=== PATIENT | male | born 1965 | race Caucasian/White ===

== ENCOUNTER 2017-09-30 17:32 | Inpatient (IN) | payer OTHER ==
[2017-09-30 19:33] VITALS: BMI 24.8
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
[2017-09-30] MEDS ORDERED: LOPERAMIDE HCL 2 MG CAPSULE PO PRN (21:57)
[2017-09-30] MEDS ORDERED: MAGNESIUM CITRATE 300 ML BOTTLE PO PRN (21:57)
[2017-09-30] MEDS ORDERED: ACETAMINOPHEN 325 MG TABLET (FP) PO PRN (21:57)
[2017-09-30] MEDS ORDERED: MAG HYDROX/AL HYDROX/SIMETH 30 ML UNIT-DOSE CUP PO PRN (21:57)
[2017-09-30] MEDS ORDERED: NICOTINE POLACRILEX 2 MG GUM BUC PRN (21:57)
[2017-09-30] MEDS ORDERED: MAGNESIUM HYDROX 2400MG/30ML ORAL SUSPENSION 30 ML CUP PO PRN (21:57)
[2017-09-30] MEDS ORDERED: MENTHOL/PHENOL 1 EACH UD MM PRN (21:57)
[2017-09-30] MEDS ORDERED: guaiFENesin/D-METHORPHAN HB 10 ML UNIT-DOSE CUPS PO PRN (21:57)
[2017-09-30] MEDS ORDERED: METHADONE HCL 10 MG TABLET (FOR DETOX USE ONLY) PO ONE ×2 (21:57→23:00)
[2017-09-30] MEDS ORDERED: P-EPHED 60MG/TRIPROLIDI 2.5MG TABLET PO PRN (21:57)
[2017-09-30] MEDS ORDERED: diazePAM 5 MG TABLET PO PRN (21:57)
[2017-09-30] MEDS ORDERED: IBUPROFEN 400 MG TABLET (FP) PO PRN (21:57)
[2017-10-01] MEDS ORDERED: METHADONE HCL 10 MG TABLET (FOR DETOX USE ONLY) PO ONE ×4 (00:34→23:00)
[2017-10-01] MEDS: THIAMINE HCL 100 MG TABLET (FP) PO SCH ×2 (00:38→22:28)
[2017-10-01] MEDS: PRENATAL VITAMINS W/ FOLIC ACID TABLET (FP) PO SCH (10:06)
[2017-10-01] MEDS: NICOTINE 14 MG/24 HOURS TOPICAL PATCH TD SCH (10:06)
[2017-10-01 10:08] LABS: HEMATOCRIT 40.2 % (35.4-49); MCH 27.9 pg (25.7-33.7); MCHC 32.3 g/dl (32.0-35.9); MEAN CELL VOLUME 86.5 fl (80-96); MEAN PLT VOLUME 8.3 fl (7.5-11.1); PLATELET COUNT 183 K/MM3 (134-434); RBC 4.65 M/mm3 (4.00-5.60); RDW 15.3 % (11.9-15.9); WHITE BLOOD COUNT 5.7 K/mm3 (4.0-10.0)
[2017-10-01 10:12] LABS: CHLORIDE 112 mmol/L (98-107); POTASSIUM 4.3 mmol/L (3.5-5.1); SODIUM 144 mmol/L (136-145)
--- NOTE | 2017-10-01 10:14 | EKG ---
Test Reason : Blood Pressure : / mmHG Vent. Rate : 068 BPM Atrial Rate : 068 BPM P-R Int : 126 ms QRS Dur : 084 ms QT Int : 410 ms P-R-T Axes : 074 026 039 degrees QTc Int : 435 ms NORMAL SINUS RHYTHM NORMAL ECG NO PREVIOUS ECGS AVAILABLE Confirmed by Bartolome Modi MD ([id number]) on 10/01/2017 10:14:05 AM Referred By: Confirmed By:Bartolome Modi MD
[2017-10-01 10:20] LABS: ALBUMIN 2.7 g/dl (3.4-5.0); ALK PHOS 84 U/L (45-117); ANION GAP 4 (8-16); BILIRUBIN,TOTAL 0.1 mg/dL (0.2-1.0); BLOOD UREA NITROGEN 24 mg/dL (7-18); CALCIUM 8.3 mg/dL (8.5-10.1); CO2 28 mmol/L (21-32); CREATININE 1.1 mg/dL (0.7-1.3); GLUCOSE,RANDOM 93 mg/dL (74-106); SGOT/AST 19 U/L (15-37); SGPT/ALT 24 U/L (12-78); TOT PROT 5.4 g/dl (6.4-8.2)
--- NOTE | 2017-10-01 12:11 | PN ---
BHS COWS - Scale Resting Pulse: 0= [place] 80 or Below Sweatin= Chills/Flushing Restless Observation: 0= Sits Still Pupil Size: 2= Moderately Dilated Bone or Joint Aches: 4=Acute Joint/Muscle Pain Runny Nose/ Eye Tearin= Nasal Congestion GI Upset > 30mins: 0= None Tremor Observation of Outstretched Hands: 2= Slight Tremor Visible Yawning Observation: 2= >3x During Session Anxiety or Irritability: 2=Irritable/Anxious Goose Flesh Skin: 0=Smooth Skin COWS Score: 14 BHS Progress Note (SOAP) Subjective: ANXIETY,YAWNING,FATIGUE,TEARY EYES. Objective: 10/01/17 12:09 Vital Signs Temperature 97.9 F 10/01/17 09:08 Pulse Rate 58 L 10/01/17 09:08 Respiratory Rate 18 10/01/17 09:08 Blood Pressure 129/80 10/01/17 09:08 O2 Sat by Pulse Oximetry (%) Laboratory Last Values WBC 5.7 K/mm3 (4.0-10.0) 10/01/17 08:00 RBC 4.65 M/mm3 (4.00-5.60) 10/01/17 08:00 Hgb 13.0 GM/dL (11.7-16.9) 10/01/17 08:00 Hct 40.2 % (35.4-49) 10/01/17 08:00 MCV 86.5 fl (80-96) 10/01/17 08:00 MCH 27.9 pg (25.7-33.7) 10/01/17 08:00 MCHC 32.3 g/dl (32.0-35.9) 10/01/17 08:00 RDW 15.3 % (11.9-15.9) 10/01/17 08:00 Plt Count 183 K/MM3 (134-434) 10/01/17 08:00 MPV 8.3 fl (7.5-11.1) 10/01/17 08:00 Sodium 144 mmol/L (136-145) 10/01/17 08:00 Potassium 4.3 mmol/L (3.5-5.1) 10/01/17 08:00 Chloride 112 mmol/L (98-107) H 10/01/17 08:00 Carbon Dioxide 28 mmol/L (21-32) 10/01/17 08:00 Anion Gap 4 (8-16) L 10/01/17 08:00 BUN 24 mg/dL (7-18) H 10/01/17 08:00 Creatinine 1.1 mg/dL (0.7-1.3) 10/01/17 08:00 Creat Clearance w eGFR > 60 (>60) 10/01/17 08:00 Random Glucose 93 mg/dL (74-106) 10/01/17 08:00 Calcium 8.3 mg/dL (8.5-10.1) L 10/01/17 08:00 Total Bilirubin 0.1 mg/dL (0.2-1.0) L 10/01/17 08:00 AST 19 U/L (15-37) 10/01/17 08:00 ALT 24 U/L (12-78) 10/01/17 08:00 Alkaline Phosphatase 84 U/L (45-117) 10/01/17 08:00 Total Protein 5.4 g/dl (6.4-8.2) L 10/01/17 08:00 Albumin 2.7 g/dl (3.4-5.0) L 10/01/17 08:00 UA PENDING BUN NOTED Assessment: 10/01/17 12:09 WITHDRAWAL SX Plan: CONTINUE DETOX REPEAT CMP
--- NOTE | 2017-10-01 13:19 | CONSULT ---
[facility] Psychiatric Consult - Data Date of interview: 10/01/17 Admission source: [facility] Identifying data: THREE visits at bedside.Patient remains uncooperative.Examination deferred.
[2017-10-01 18:06] LABS: URINE APPEARANCE TURBID; URINE BLOOD NEGATIVE (NEGATIVE); URINE COLOR AMBER; URINE GLUCOSE (UA) NEGATIVE (NEGATIVE); URINE KETONE NEGATIVE (NEGATIVE); URINE LEUK ESTERASE NEGATIVE (NEGATIVE); URINE NITRITE NEGATIVE (NEGATIVE)
[2017-10-01 18:18] LABS: URINE PROTEIN 1+ (NEGATIVE)
[2017-10-01 19:10] LABS: CALCIUM OXALATE CRYSTALS MODERATE /hpf (NONE SEEN); URINE BACTERIA RARE /hpf (NONE SEEN); URINE MUCUS MANY
[2017-10-01] MEDS: diazePAM 5 MG TABLET PO PRN (22:27)
[2017-10-02] MEDS ORDERED: METHADONE HCL 10 MG TABLET (FOR DETOX USE ONLY) PO ONE (10:00)
[2017-10-02] MEDS ORDERED: METHADONE HCL 5 MG TABLET (FOR DETOX USE ONLY) PO ONE (10:00)
[2017-10-02] MEDS: PRENATAL VITAMINS W/ FOLIC ACID TABLET (FP) PO SCH (10:19)
[2017-10-02] MEDS: NICOTINE 14 MG/24 HOURS TOPICAL PATCH TD SCH (10:21)
[2017-10-02 10:44] LABS: CHLORIDE 113 mmol/L (98-107); POTASSIUM 3.9 mmol/L (3.5-5.1); SODIUM 139 mmol/L (136-145)
[2017-10-02 10:56] LABS: ALBUMIN 2.9 g/dl (3.4-5.0); ALK PHOS 80 U/L (45-117); ANION GAP -4 (8-16); BILIRUBIN,TOTAL 0.2 mg/dL (0.2-1.0); BLOOD UREA NITROGEN 15 mg/dL (7-18); CALCIUM 8.7 mg/dL (8.5-10.1); CO2 30 mmol/L (21-32); GLUCOSE,RANDOM 78 mg/dL (74-106); SGOT/AST 16 U/L (15-37); SGPT/ALT 26 U/L (12-78); TOT PROT 5.9 g/dl (6.4-8.2)
--- NOTE | 2017-10-02 12:10 | PN ---
BHS COWS - Scale Resting Pulse: 0= [place] 80 or Below Sweatin= Chills/Flushing Restless Observation: 3= Extraneous Movement Pupil Size: 0= Normal to Room Light Bone or Joint Aches: 4=Acute Joint/Muscle Pain Runny Nose/ Eye Tearin= Runny Nose/Eyes GI Upset > 30mins: 0= None Tremor Observation of Outstretched Hands: 2= Slight Tremor Visible Yawning Observation: 1= 1-2x During Session Anxiety or Irritability: 2=Irritable/Anxious Goose Flesh Skin: 0=Smooth Skin COWS Score: 15 BHS Progress Note (SOAP) Subjective: ANXIETY,SWEATS,CHILLS,RUNNY NOSE. Objective: 10/02/17 12:09 Vital Signs Temperature 96.7 F L 10/02/17 09:15 Pulse Rate 62 10/02/17 09:15 Respiratory Rate 18 10/02/17 09:15 Blood Pressure 126/70 10/02/17 09:15 O2 Sat by Pulse Oximetry (%) Laboratory Last Values WBC 5.7 K/mm3 (4.0-10.0) 10/01/17 08:00 RBC 4.65 M/mm3 (4.00-5.60) 10/01/17 08:00 Hgb 13.0 GM/dL (11.7-16.9) 10/01/17 08:00 Hct 40.2 % (35.4-49) 10/01/17 08:00 MCV 86.5 fl (80-96) 10/01/17 08:00 MCH 27.9 pg (25.7-33.7) 10/01/17 08:00 MCHC 32.3 g/dl (32.0-35.9) 10/01/17 08:00 RDW 15.3 % (11.9-15.9) 10/01/17 08:00 Plt Count 183 K/MM3 (134-434) 10/01/17 08:00 MPV 8.3 fl (7.5-11.1) 10/01/17 08:00 Sodium 139 mmol/L (136-145) 10/02/17 07:00 Potassium 3.9 mmol/L (3.5-5.1) 10/02/17 07:00 Chloride 113 mmol/L (98-107) H 10/02/17 07:00 Carbon Dioxide 30 mmol/L (21-32) 10/02/17 07:00 Anion Gap -4 (8-16) L 10/02/17 07:00 BUN 15 mg/dL (7-18) D 10/02/17 07:00 Creatinine 1.0 mg/dL (0.7-1.3) 10/02/17 07:00 Creat Clearance w eGFR > 60 (>60) 10/02/17 07:00 Random Glucose 78 mg/dL (74-106) 10/02/17 07:00 Calcium 8.7 mg/dL (8.5-10.1) 10/02/17 07:00 Total Bilirubin 0.2 mg/dL (0.2-1.0) D 10/02/17 07:00 AST 16 U/L (15-37) 10/02/17 07:00 ALT 26 U/L (12-78) 10/02/17 07:00 Alkaline Phosphatase 80 U/L (45-117) 10/02/17 07:00 Total Protein 5.9 g/dl (6.4-8.2) L 10/02/17 07:00 Albumin 2.9 g/dl (3.4-5.0) L 10/02/17 07:00 Urine Color [place] 09/30/17 17:00 Urine Appearance Turbid 09/30/17 17:00 Urine pH 5.0 (5.0-8.0) 09/30/17 17:00 Ur Specific [place] 1.032 (1.001-1.035) 09/30/17 17:00 Urine Protein 1+ (NEGATIVE) H 09/30/17 17:00 Urine Glucose (UA) Negative (NEGATIVE) 09/30/17 17:00 Urine Ketones Negative (NEGATIVE) 09/30/17 17:00 Urine Blood Negative (NEGATIVE) 09/30/17 17:00 Urine Nitrite Negative (NEGATIVE) 09/30/17 17:00 Urine Bilirubin 2.0 (<2.0 mg/dL) 09/30/17 17:00 Urine Urobilinogen 2.0 mg/dL (0.2-1.0) 09/30/17 17:00 Ur Leukocyte Esterase Negative (NEGATIVE) 09/30/17 17:00 Urine WBC (Auto) 2 /hpf (3-5) 09/30/17 17:00 Urine RBC (Auto) 1 /hpf (0-3) 09/30/17 17:00 Calcium Oxalate Crystal Moderate /hpf (NONE SEEN) 09/30/17 17:00 Urine Bacteria Rare /hpf (NONE SEEN) 09/30/17 17:00 Urine Mucus Many 09/30/17 17:00 Assessment: 10/02/17 12:09 WITHDRAWAL SX Plan: CONTINUE DETOX
[2017-10-02] MEDS: diazePAM 5 MG TABLET PO PRN (22:09)
[2017-10-02] MEDS: MELATONIN 5 MG TABLETS PO PRN (22:09)
[2017-10-02] MEDS: THIAMINE HCL 100 MG TABLET (FP) PO SCH (22:09)
[2017-10-03] MEDS ORDERED: METHADONE HCL 5 MG TABLET (FOR DETOX USE ONLY) PO ONE ×2 (10:00)
[2017-10-03] MEDS: PRENATAL VITAMINS W/ FOLIC ACID TABLET (FP) PO SCH (10:23)
[2017-10-03] MEDS: diazePAM 5 MG TABLET PO PRN (10:23)
[2017-10-03] MEDS: NICOTINE 14 MG/24 HOURS TOPICAL PATCH TD SCH (10:24)
--- NOTE | 2017-10-03 17:43 | PN ---
BHS Progress Note (SOAP) Subjective: Tremors,Sweating, Chills, Hot / Cold Sensations. Objective: PATIENT A & O X 2 (UNCERTAIN ABOUT CURRENT DAY/ DATE). PATIENT OBSERVED AMBULATING ON UNIT. NO ACUTE DISTRESS. 10/03/17 17:42 Vital Signs Temperature 97.0 F L 10/03/17 14:54 Pulse Rate 72 10/03/17 14:54 Respiratory Rate 18 10/03/17 14:54 Blood Pressure 139/68 10/03/17 14:54 O2 Sat by Pulse Oximetry (%) Laboratory Tests 09/30/17 10/01/17 10/01/17 17:00 08:00 08:00 WBC 5.7 RBC 4.65 Hgb 13.0 Hct 40.2 MCV 86.5 MCH 27.9 MCHC 32.3 RDW 15.3 Plt Count 183 MPV 8.3 Sodium 144 Potassium 4.3 Chloride 112 H Carbon Dioxide 28 Anion Gap 4 L BUN 24 H Creatinine 1.1 Creat Clearance w eGFR > 60 Random Glucose 93 Calcium 8.3 L Total Bilirubin 0.1 L AST 19 ALT 24 Alkaline Phosphatase 84 Total Protein 5.4 L Albumin 2.7 L Urine Color [place] Urine Appearance Turbid Urine pH 5.0 Ur Specific [place] 1.032 Urine Protein 1+ H Urine Glucose (UA) Negative Urine Ketones Negative Urine Blood Negative Urine Nitrite Negative Urine Bilirubin 2.0 Urine Urobilinogen 2.0 Ur Leukocyte Esterase Negative Urine WBC (Auto) 2 Urine RBC (Auto) 1 Calcium Oxalate Crystal Moderate Urine Bacteria Rare Urine Mucus Many RPR Titer 10/01/17 10/02/17 08:00 07:00 WBC RBC Hgb Hct MCV MCH MCHC RDW Plt Count MPV Sodium 139 Potassium 3.9 Chloride 113 H Carbon Dioxide 30 Anion Gap -4 L BUN 15 D Creatinine 1.0 Creat Clearance w eGFR > 60 Random Glucose 78 Calcium 8.7 Total Bilirubin 0.2 D AST 16 ALT 26 Alkaline Phosphatase 80 Total Protein 5.9 L Albumin 2.9 L Urine Color Urine Appearance Urine pH Ur Specific [place] Urine Protein Urine Glucose (UA) Urine Ketones Urine Blood Urine Nitrite Urine Bilirubin Urine Urobilinogen Ur Leukocyte Esterase Urine WBC (Auto) Urine RBC (Auto) Calcium Oxalate Crystal Urine Bacteria Urine Mucus RPR Titer Nonreactive LABS NOTED. Assessment: 10/03/17 17:42 WITHDRAWAL SYMPTOMS. Plan: CONTINUE DETOX.
[2017-10-03] MEDS: MELATONIN 5 MG TABLETS PO PRN (22:25)
[2017-10-03] MEDS: THIAMINE HCL 100 MG TABLET (FP) PO SCH (22:25)
[2017-10-04] MEDS ORDERED: METHADONE HCL 5 MG TABLET (FOR DETOX USE ONLY) PO ONE (10:00)
[2017-10-04] MEDS ORDERED: METHADONE HCL 10 MG TABLET (FOR DETOX USE ONLY) PO ONE (10:00)
[2017-10-04] MEDS: PRENATAL VITAMINS W/ FOLIC ACID TABLET (FP) PO SCH (10:12)
[2017-10-04] MEDS: NICOTINE 14 MG/24 HOURS TOPICAL PATCH TD SCH (10:12)
--- NOTE | 2017-10-04 10:39 | PN ---
BHS Progress Note (SOAP) Subjective: Sweating, Tremors, Interrupted Sleep. Objective: PATIENT A & O X 3, OBSERVED AMBULATING ON UNIT. NO ACUTE DISTRESS. 10/04/17 10:40 Vital Signs Temperature 97.2 F L 10/04/17 09:17 Pulse Rate 66 10/04/17 09:17 Respiratory Rate 22 10/04/17 09:17 Blood Pressure 123/74 10/04/17 09:17 O2 Sat by Pulse Oximetry (%) Laboratory Tests 09/30/17 10/01/17 10/01/17 17:00 08:00 08:00 WBC 5.7 RBC 4.65 Hgb 13.0 Hct 40.2 MCV 86.5 MCH 27.9 MCHC 32.3 RDW 15.3 Plt Count 183 MPV 8.3 Sodium 144 Potassium 4.3 Chloride 112 H Carbon Dioxide 28 Anion Gap 4 L BUN 24 H Creatinine 1.1 Creat Clearance w eGFR > 60 Random Glucose 93 Calcium 8.3 L Total Bilirubin 0.1 L AST 19 ALT 24 Alkaline Phosphatase 84 Total Protein 5.4 L Albumin 2.7 L Urine Color [place] Urine Appearance Turbid Urine pH 5.0 Ur Specific [place] 1.032 Urine Protein 1+ H Urine Glucose (UA) Negative Urine Ketones Negative Urine Blood Negative Urine Nitrite Negative Urine Bilirubin 2.0 Urine Urobilinogen 2.0 Ur Leukocyte Esterase Negative Urine WBC (Auto) 2 Urine RBC (Auto) 1 Calcium Oxalate Crystal Moderate Urine Bacteria Rare Urine Mucus Many RPR Titer 10/01/17 10/02/17 08:00 07:00 WBC RBC Hgb Hct MCV MCH MCHC RDW Plt Count MPV Sodium 139 Potassium 3.9 Chloride 113 H Carbon Dioxide 30 Anion Gap -4 L BUN 15 D Creatinine 1.0 Creat Clearance w eGFR > 60 Random Glucose 78 Calcium 8.7 Total Bilirubin 0.2 D AST 16 ALT 26 Alkaline Phosphatase 80 Total Protein 5.9 L Albumin 2.9 L Urine Color Urine Appearance Urine pH Ur Specific [place] Urine Protein Urine Glucose (UA) Urine Ketones Urine Blood Urine Nitrite Urine Bilirubin Urine Urobilinogen Ur Leukocyte Esterase Urine WBC (Auto) Urine RBC (Auto) Calcium Oxalate Crystal Urine Bacteria Urine Mucus RPR Titer Nonreactive LABS NOTED. Assessment: 10/04/17 10:40 WITHDRAWAL SYMPTOMS. Plan: CONTINUE DETOX. INCREASE DAILY PO FLUID INTAKE.
[2017-10-04] MEDS: THIAMINE HCL 100 MG TABLET (FP) PO SCH (22:32)
[2017-10-04] MEDS: MELATONIN 5 MG TABLETS PO PRN (22:32)
[2017-10-05] MEDS ORDERED: METHADONE HCL 5 MG TABLET (FOR DETOX USE ONLY) PO ONE (06:00)
[2017-10-05] MEDS ORDERED: METHADONE HCL 10 MG TABLET (FOR DETOX USE ONLY) PO ONE (10:00)
[2017-10-05] MEDS: PRENATAL VITAMINS W/ FOLIC ACID TABLET (FP) PO SCH (10:12)
[2017-10-05] MEDS: NICOTINE 14 MG/24 HOURS TOPICAL PATCH TD SCH (10:12)
[2017-10-05] MEDS: hydrOXYzine PAMOATE 50 MG CAPSULE (FP) PO PRN ×2 (10:12→22:16)
--- NOTE | 2017-10-05 15:19 | PN ---
BHS Progress Note (SOAP) Subjective: Sweating, Interrupted Sleep. Objective: PATIENT A & O X 3, OBSERVED AMBULATING ON UNIT. NO ACUTE DISTRESS. 10/05/17 15:17 Vital Signs Temperature 98.3 F 10/05/17 13:05 Pulse Rate 80 10/05/17 13:05 Respiratory Rate 18 10/05/17 13:05 Blood Pressure 133/85 10/05/17 13:05 O2 Sat by Pulse Oximetry (%) Laboratory Tests 09/30/17 10/01/17 10/01/17 17:00 08:00 08:00 WBC 5.7 RBC 4.65 Hgb 13.0 Hct 40.2 MCV 86.5 MCH 27.9 MCHC 32.3 RDW 15.3 Plt Count 183 MPV 8.3 Sodium 144 Potassium 4.3 Chloride 112 H Carbon Dioxide 28 Anion Gap 4 L BUN 24 H Creatinine 1.1 Creat Clearance w eGFR > 60 Random Glucose 93 Calcium 8.3 L Total Bilirubin 0.1 L AST 19 ALT 24 Alkaline Phosphatase 84 Total Protein 5.4 L Albumin 2.7 L Urine Color [place] Urine Appearance Turbid Urine pH 5.0 Ur Specific [place] 1.032 Urine Protein 1+ H Urine Glucose (UA) Negative Urine Ketones Negative Urine Blood Negative Urine Nitrite Negative Urine Bilirubin 2.0 Urine Urobilinogen 2.0 Ur Leukocyte Esterase Negative Urine WBC (Auto) 2 Urine RBC (Auto) 1 Calcium Oxalate Crystal Moderate Urine Bacteria Rare Urine Mucus Many RPR Titer 10/01/17 10/02/17 08:00 07:00 WBC RBC Hgb Hct MCV MCH MCHC RDW Plt Count MPV Sodium 139 Potassium 3.9 Chloride 113 H Carbon Dioxide 30 Anion Gap -4 L BUN 15 D Creatinine 1.0 Creat Clearance w eGFR > 60 Random Glucose 78 Calcium 8.7 Total Bilirubin 0.2 D AST 16 ALT 26 Alkaline Phosphatase 80 Total Protein 5.9 L Albumin 2.9 L Urine Color Urine Appearance Urine pH Ur Specific [place] Urine Protein Urine Glucose (UA) Urine Ketones Urine Blood Urine Nitrite Urine Bilirubin Urine Urobilinogen Ur Leukocyte Esterase Urine WBC (Auto) Urine RBC (Auto) Calcium Oxalate Crystal Urine Bacteria Urine Mucus RPR Titer Nonreactive LABS NOTED. Assessment: 10/05/17 15:18 WITHDRAWAL SYMPTOMS. Plan: CONTINUE DETOX.
[2017-10-05] MEDS: THIAMINE HCL 100 MG TABLET (FP) PO SCH (22:16)
[2017-10-06] MEDS ORDERED: METHADONE HCL 5 MG TABLET (FOR DETOX USE ONLY) PO ONE (06:00)
[2017-10-06 06:21] VITALS: BP 121/69; PULSE 53; TEMP 96.7
--- NOTE | 2017-10-06 11:25 | DS ---
[facility] Detox Discharge Summary Admission Date: 09/30/17 Discharge Date: 10/06/17 - History Present History: Cocaine Dependence, Opioid Dependence Pertinent Past History: Gastritis Glaucoma - Physical Exam Results Vital Signs: Vital Signs Temperature 96.7 F L 10/06/17 06:20 Pulse Rate 53 L 10/06/17 06:20 Respiratory Rate 18 10/06/17 06:20 Blood Pressure 121/69 10/06/17 06:20 O2 Sat by Pulse Oximetry (%) Pertinent Admission Physical Exam Findings: Withdrawal symptoms Laboratory Tests 09/30/17 10/01/17 10/01/17 17:00 08:00 08:00 WBC 5.7 RBC 4.65 Hgb 13.0 Hct 40.2 MCV 86.5 MCH 27.9 MCHC 32.3 RDW 15.3 Plt Count 183 MPV 8.3 Sodium 144 Potassium 4.3 Chloride 112 H Carbon Dioxide 28 Anion Gap 4 L BUN 24 H Creatinine 1.1 Creat Clearance w eGFR > 60 Random Glucose 93 Calcium 8.3 L Total Bilirubin 0.1 L AST 19 ALT 24 Alkaline Phosphatase 84 Total Protein 5.4 L Albumin 2.7 L Urine Color [place] Urine Appearance Turbid Urine pH 5.0 Ur Specific [place] 1.032 Urine Protein 1+ H Urine Glucose (UA) Negative Urine Ketones Negative Urine Blood Negative Urine Nitrite Negative Urine Bilirubin 2.0 Urine Urobilinogen 2.0 Ur Leukocyte Esterase Negative Urine WBC (Auto) 2 Urine RBC (Auto) 1 Calcium Oxalate Crystal Moderate Urine Bacteria Rare Urine Mucus Many RPR Titer 10/01/17 10/02/17 08:00 07:00 WBC RBC Hgb Hct MCV MCH MCHC RDW Plt Count MPV Sodium 139 Potassium 3.9 Chloride 113 H Carbon Dioxide 30 Anion Gap -4 L BUN 15 D Creatinine 1.0 Creat Clearance w eGFR > 60 Random Glucose 78 Calcium 8.7 Total Bilirubin 0.2 D AST 16 ALT 26 Alkaline Phosphatase 80 Total Protein 5.9 L Albumin 2.9 L Urine Color Urine Appearance Urine pH Ur Specific [place] Urine Protein Urine Glucose (UA) Urine Ketones Urine Blood Urine Nitrite Urine Bilirubin Urine Urobilinogen Ur Leukocyte Esterase Urine WBC (Auto) Urine RBC (Auto) Calcium Oxalate Crystal Urine Bacteria Urine Mucus RPR Titer Nonreactive Labs noted - Treatment Hospital Course: Detox Protocol Followed, Detoxed Safely, Responded well, Discharged Condition Good - Medication Discharge Medications: Ambulatory Orders NK [No Known Home Medication] 10/01/17 - Diagnosis (1) Cocaine dependence Status: Chronic (2) Nicotine dependence Status: Chronic (3) Insomnia Status: Acute (4) Gastritis Status: Chronic Qualifiers: Gastritis type: unspecified gastritis Chronicity: unspecified Gastritis bleeding: presence of bleeding unspecified Qualified Code(s): K29.70 - Gastritis, unspecified, without bleeding (5) Opioid dependence with withdrawal Status: Acute (6) Glaucoma Status: Chronic Qualifiers: Primary angle closure glaucoma type: unspecified type Laterality: unspecified laterality Glaucoma stage: stage unspecified - AMA Did Patient Leave Against Medical Advice: No (Follow up with your PCP within 1- 2 weeks)
== END 2017-10-06 08:42 | disposition home or self-care (01) | DRG 773 ==
LOC: YASAS 17:32 → Y3N 21:10
PROVIDERS: ADMIT Internal Medicine; ATTEND Internal Medicine
PROC: HZ2ZZZZ Detoxification Services for Substance Abuse Treatment (ICD-10-PCS; principal; 2017-09-30)
DX: F11.23 Opioid dependence with withdrawal (principal); F14.20 Cocaine dependence, uncomplicated; F17.210 Nicotine dependence, cigarettes, uncomplicated; G47.00 Insomnia, unspecified; K21.9 Gastro-esophageal reflux disease without esophagitis; E86.0 Dehydration; H40.9 Unspecified glaucoma; Z59.0 Homelessness
CPT/HCPCS: 36415; 80053; 81003; 81015; 85027; 86593; 93005; 93010

== ENCOUNTER 2017-10-23 17:38 | Inpatient (IN) | payer OTHER ==
[2017-10-23 17:56] VITALS: BMI 25.7
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
[2017-10-23] MEDS ORDERED: MELATONIN 5 MG TABLETS PO PRN (22:00)
[2017-10-23] MEDS ORDERED: MENTHOL/PHENOL 1 EACH UD MM PRN (23:21)
[2017-10-23] MEDS ORDERED: LOPERAMIDE HCL 2 MG CAPSULE PO PRN (23:21)
[2017-10-23] MEDS ORDERED: IBUPROFEN 400 MG TABLET (FP) PO PRN (23:21)
[2017-10-23] MEDS ORDERED: P-EPHED 60MG/TRIPROLIDI 2.5MG TABLET PO PRN (23:21)
[2017-10-23] MEDS ORDERED: MAGNESIUM CITRATE 300 ML BOTTLE PO PRN (23:21)
[2017-10-23] MEDS ORDERED: ACETAMINOPHEN 325 MG TABLET (FP) PO PRN (23:21)
[2017-10-23] MEDS ORDERED: MAG HYDROX/AL HYDROX/SIMETH 30 ML UNIT-DOSE CUP PO PRN (23:21)
[2017-10-23] MEDS ORDERED: MAGNESIUM HYDROX 2400MG/30ML ORAL SUSPENSION 30 ML CUP PO PRN (23:21)
[2017-10-23] MEDS ORDERED: guaiFENesin/D-METHORPHAN HB 10 ML UNIT-DOSE CUPS PO PRN (23:21)
[2017-10-23] MEDS ORDERED: NICOTINE POLACRILEX 2 MG GUM BUC PRN (23:24)
[2017-10-24] MEDS: NICOTINE 14 MG/24 HOURS TOPICAL PATCH TD SCH (09:48)
[2017-10-24] MEDS: PRENATAL VITAMINS W/ FOLIC ACID TABLET (FP) PO SCH (09:48)
[2017-10-24 10:32] LABS: HEMATOCRIT 43.1 % (35.4-49); MCH 28.4 pg (25.7-33.7); MCHC 32.4 g/dl (32.0-35.9); MEAN CELL VOLUME 87.7 fl (80-96); MEAN PLT VOLUME 8.2 fl (7.5-11.1); PLATELET COUNT 216 K/MM3 (134-434); RBC 4.92 M/mm3 (4.00-5.60); RDW 16.2 % (11.9-15.9); WHITE BLOOD COUNT 6.2 K/mm3 (4.0-10.0)
[2017-10-24 10:38] LABS: CHLORIDE 109 mmol/L (98-107); POTASSIUM 4.7 mmol/L (3.5-5.1); SODIUM 143 mmol/L (136-145)
[2017-10-24 10:54] LABS: ALBUMIN 3.4 g/dl (3.4-5.0); ALK PHOS 114 U/L (45-117); ANION GAP 4 (8-16); BILIRUBIN,TOTAL 0.2 mg/dL (0.2-1.0); BLOOD UREA NITROGEN 19 mg/dL (7-18); CALCIUM 8.7 mg/dL (8.5-10.1); CO2 30 mmol/L (21-32); CREATININE 1.2 mg/dL (0.7-1.3); GLUCOSE,RANDOM 110 mg/dL (74-106); SGOT/AST 23 U/L (15-37); SGPT/ALT 33 U/L (12-78); TOT PROT 6.6 g/dl (6.4-8.2)
[2017-10-24 12:56] LABS: URINE APPEARANCE CLEAR; URINE BILIRUBIN NEGATIVE (<2.0 mg/dL); URINE BLOOD NEGATIVE (NEGATIVE); URINE COLOR LTYELLOW; URINE GLUCOSE (UA) NEGATIVE (NEGATIVE); URINE KETONE NEGATIVE (NEGATIVE); URINE LEUK ESTERASE NEGATIVE (NEGATIVE); URINE NITRITE NEGATIVE (NEGATIVE); URINE PROTEIN NEGATIVE (NEGATIVE); URINE UROBILINOGEN NEGATIVE mg/dL (0.2-1.0)
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
--- NOTE | 2017-10-24 14:54 | PN ---
[facility] Progress Note Note: Patient came to the office after the initial evaluation with apology, he did not disclose that he carries a diagnosis of bipolar II and anxiety. Reports his first depressed episode at age of 26 and was admitted to [facility] in [place], he had a second hospitalization at [facility] in 2017, he currently on Abilify 10- mg po hs and Prozac 20 mg po daily, states he visits ER to obtain scripts for medications. Will add medications and add Dx as Bipolar II. Monitor progress as needed.
[2017-10-24] MEDS ORDERED: cloNIDine HCL 0.1 MG TABLET PO ONE ×2 (15:57→16:15)
--- NOTE | 2017-10-24 15:58 | PN ---
[facility] Progress Note Note: Patient requested methadone. Patient completed opioid detox yesterday at [facility]. Reports he currently experiencing sweats and chills. Vital Signs Temperature 98.2 F 10/24/17 07:07 Pulse Rate 73 10/24/17 07:07 Respiratory Rate 18 10/24/17 07:07 Blood Pressure 124/86 10/24/17 07:07 O2 Sat by Pulse Oximetry (%) Laboratory Last Values WBC 6.2 K/mm3 (4.0-10.0) 10/24/17 07:00 RBC 4.92 M/mm3 (4.00-5.60) 10/24/17 07:00 Hgb 14.0 GM/dL (11.7-16.9) 10/24/17 07:00 Hct 43.1 % (35.4-49) 10/24/17 07:00 MCV 87.7 fl (80-96) 10/24/17 07:00 MCH 28.4 pg (25.7-33.7) 10/24/17 07:00 MCHC 32.4 g/dl (32.0-35.9) 10/24/17 07:00 RDW 16.2 % (11.9-15.9) H 10/24/17 07:00 Plt Count 216 K/MM3 (134-434) 10/24/17 07:00 MPV 8.2 fl (7.5-11.1) 10/24/17 07:00 Sodium 143 mmol/L (136-145) 10/24/17 07:00 Potassium 4.7 mmol/L (3.5-5.1) D 10/24/17 07:00 Chloride 109 mmol/L (98-107) H 10/24/17 07:00 Carbon Dioxide 30 mmol/L (21-32) 10/24/17 07:00 Anion Gap 4 (8-16) L 10/24/17 07:00 BUN 19 mg/dL (7-18) H D 10/24/17 07:00 Creatinine 1.2 mg/dL (0.7-1.3) 10/24/17 07:00 Creat Clearance w eGFR > 60 (>60) 10/24/17 07:00 Random Glucose 110 mg/dL (74-106) H D 10/24/17 07:00 Calcium 8.7 mg/dL (8.5-10.1) 10/24/17 07:00 Total Bilirubin 0.2 mg/dL (0.2-1.0) 10/24/17 07:00 AST 23 U/L (15-37) D 10/24/17 07:00 ALT 33 U/L (12-78) D 10/24/17 07:00 Alkaline Phosphatase 114 U/L (45-117) D 10/24/17 07:00 Total Protein 6.6 g/dl (6.4-8.2) 10/24/17 07:00 Albumin 3.4 g/dl (3.4-5.0) 10/24/17 07:00 Urine Color Ltyellow 10/24/17 11:10 Urine Appearance Clear 10/24/17 11:10 Urine pH 5.0 (5.0-8.0) 10/24/17 11:10 Ur Specific [place] 1.023 (1.001-1.035) 10/24/17 11:10 Urine Protein Negative (NEGATIVE) 10/24/17 11:10 Urine Glucose (UA) Negative (NEGATIVE) 10/24/17 11:10 Urine Ketones Negative (NEGATIVE) 10/24/17 11:10 Urine Blood Negative (NEGATIVE) 10/24/17 11:10 Urine Nitrite Negative (NEGATIVE) 10/24/17 11:10 Urine Bilirubin Negative (<2.0 mg/dL) 10/24/17 11:10 Urine Urobilinogen Negative mg/dL (0.2-1.0) 10/24/17 11:10 Ur Leukocyte Esterase Negative (NEGATIVE) 10/24/17 11:10 RPR Titer Nonreactive (NONREACTIVE) 10/24/17 07:00 HIV 1&2 Antibody Screen Negative 10/24/17 07:00 HIV P24 Antigen Negative 10/24/17 07:00 Patient AOx3, in no apparent distress + anxious No adventitious breath sounds Full ROM, ambulating in the unit Plan; One time order clonidie 0.1mg STAT
--- NOTE | 2017-10-24 16:15 | EKG ---
Test Reason : Blood Pressure : / mmHG Vent. Rate : 073 BPM Atrial Rate : 073 BPM P-R Int : 136 ms QRS Dur : 080 ms QT Int : 366 ms P-R-T Axes : 069 040 045 degrees QTc Int : 403 ms NORMAL SINUS RHYTHM NORMAL ECG WHEN COMPARED WITH ECG OF 01-OCT-2017 01:22, NO SIGNIFICANT CHANGE WAS FOUND Confirmed by RONNI ZEPEDA MD ([id number]) on 10/24/2017 4:14:49 PM Referred By: Confirmed By:RONNI ZEPEDA MD
[2017-10-24] MEDS ORDERED: ARIPiprazole 10 MG TABLET PO SCH (22:00)
[2017-10-24] MEDS ORDERED: THIAMINE HCL 100 MG TABLET (FP) PO SCH (22:00)
[2017-10-25 06:47] VITALS: BP 134/82; PULSE 80; TEMP 97.9
[2017-10-25] MEDS: PRENATAL VITAMINS W/ FOLIC ACID TABLET (FP) PO SCH (09:02)
[2017-10-25] MEDS: NICOTINE 14 MG/24 HOURS TOPICAL PATCH TD SCH (09:03)
[2017-10-25] MEDS ORDERED: FLUoxetine HCL 20 MG CAPSULE (FP) PO SCH (10:00)
--- NOTE | 2017-10-28 15:07 | PN ---
S Progress Note Note: Patient left AMA on 10/25/17 , his scripts forwarded to his pharmacy, patient was stable on AMA discharge.
== END 2017-10-25 10:15 | disposition left against medical advice (07) | DRG 770 ==
LOC: YASAS 17:38 → Y5N 19:01
PROVIDERS: ADMIT Psychiatry & Neurology Psychiatry; ATTEND Psychiatry & Neurology Psychiatry
PROC: HZ42ZZZ Group Counseling for Substance Abuse Treatment, Cognitive-Behavioral (ICD-10-PCS; principal; 2017-10-23)
DX: F11.23 Opioid dependence with withdrawal (principal); F14.20 Cocaine dependence, uncomplicated; F17.210 Nicotine dependence, cigarettes, uncomplicated; G47.00 Insomnia, unspecified; H40.9 Unspecified glaucoma; H53.001 Unspecified amblyopia, right eye; K29.70 Gastritis, unspecified, without bleeding; Z87.828 Personal history of other (healed) physical injury and trauma; Z59.0 Homelessness
CPT/HCPCS: 36415; 80053; 81003; 85027; 86593; 87389; 93005; 93010; J0735

== ENCOUNTER 2022-12-22 22:13 | Inpatient (IN) | payer OTHER ==
[2022-12-22] MEDS ORDERED: BENZOCAINE/MENTHOL (CHLORASEPTIC ) LOZENGE MM PRN (23:35)
[2022-12-22] MEDS ORDERED: LOPERAMIDE HCL 2 MG CAPSULE PO PRN (23:35)
[2022-12-22] MEDS ORDERED: MAG HYDROX/AL HYDROX/SIMETH 30 ML UNIT-DOSE CUP PO PRN (23:35)
[2022-12-22] MEDS ORDERED: NICOTINE POLACRILEX 2 MG GUM BUC PRN (23:35)
[2022-12-22] MEDS ORDERED: guaiFENesin 600 MG TABLET.ER (FP) PO PRN (23:35)
[2022-12-22] MEDS ORDERED: BENZONATATE 200 MG CAPSULE PO PRN (23:35)
[2022-12-22] MEDS ORDERED: NALOXONE HCL 0.4 MG/ML VIAL IM PRN (23:35)
[2022-12-22] MEDS ORDERED: DICYCLOMINE HCL 10 MG CAPSULE PO PRN (23:35)
[2022-12-22] MEDS ORDERED: IBUPROFEN 600 MG TABLET (FP) PO PRN (23:35)
[2022-12-22] MEDS ORDERED: BISMUTH SUBSALICYLATE 524 MG/30 ML PO PRN (23:35)
[2022-12-22] MEDS ORDERED: hydrOXYzine PAMOATE 25 MG CAPSULE (FP) PO PRN (23:35)
[2022-12-22] MEDS ORDERED: NALOXONE HCL (KLOXXADO) 8 MG SPRAY NS PRN (23:35)
[2022-12-22] MEDS ORDERED: POLYETHYLENE GLYCOL (HEALTHYLAX) 3350 17 GM PACKET PO PRN (23:35)
[2022-12-22] MEDS ORDERED: ACETAMINOPHEN 325 MG TABLET (FP) PO PRN (23:35)
[2022-12-22] MEDS ORDERED: MAGNESIUM HYDROX 2400MG/30ML ORAL SUSPENSION 30 ML CUP PO PRN (23:35)
[2022-12-22] MEDS ORDERED: METHOCARBAMOL 500 MG TABLET PO PRN (23:35)
[2022-12-22] MEDS ORDERED: ONDANSETRON *ODT* 4 MG TABLET SL PRN (23:35)
[2022-12-22] MEDS ORDERED: IBUPROFEN 400 MG TABLET (FP) PO PRN (23:35)
[2022-12-22 23:53] VITALS: BMI 22.0
[2022-12-23] MEDS: NICOTINE 14 MG/24 HOURS TOPICAL PATCH TD SCH (09:58)
[2022-12-23] MEDS: PRENATAL VITAMINS W/ FOLIC ACID TABLET (FP) PO SCH (09:58)
[2022-12-23] MEDS ORDERED: NICOTINE 14 MG/24 HOURS TOPICAL PATCH TD ONE (10:04)
[2022-12-23] MEDS ORDERED: PRENATAL VITAMINS W/ FOLIC ACID TABLET (FP) PO ONE (10:04)
[2022-12-23] MEDS: cloNIDine HCL 0.1 MG TABLET PO PRN ×2 (13:49→23:02)
[2022-12-23] MEDS ORDERED: methaDONE HCL 10 MG TABLET (FOR DETOX USE ONLY) PO ONE (20:51)
[2022-12-23] MEDS ORDERED: diazePAM 5 MG TABLET PO PRN (20:57)
[2022-12-23] MEDS: MELATONIN 5 MG TABLETS PO SCH (21:40)
[2022-12-23] MEDS: THIAMINE HCL 100 MG TABLET (FP) PO SCH (21:40)
[2022-12-24] MEDS: PRENATAL VITAMINS W/ FOLIC ACID TABLET (FP) PO SCH (11:14)
[2022-12-24] MEDS: NICOTINE 14 MG/24 HOURS TOPICAL PATCH TD SCH (11:17)
[2022-12-24 11:39] LABS: HEMATOCRIT 41.1 % (35.4-49); HEMOGLOBIN 13.1 GM/dL (11.7-16.9); MCH 27.8 pg (25.7-33.7); MCHC 31.9 g/dl (32.0-35.9); MEAN CELL VOLUME 87.2 fl (80-96); MEAN PLT VOLUME 8.6 fl (7.5-11.1); PLATELET COUNT 180 10^3/uL (134-434); RBC 4.72 M/mm3 (4.00-5.60); RDW 15.8 % (11.9-15.9); WHITE BLOOD COUNT 6.3 K/mm3 (4.0-10.0)
[2022-12-24 11:43] LABS: POTASSIUM 3.9 mmol/L (3.5-5.1)
[2022-12-24 11:46] LABS: ALBUMIN 3.2 g/dl (3.4-5.0); BLOOD UREA NITROGEN 14.7 mg/dL (7-18)
[2022-12-24 11:49] LABS: CALCIUM 9.2 mg/dL (8.5-10.1); CREATININE 0.9 mg/dL (0.55-1.3)
[2022-12-24 11:51] LABS: TOT PROT 6.1 g/dl (6.4-8.2)
[2022-12-24] MEDS: MELATONIN 5 MG TABLETS PO SCH ×2 (22:37→22:53)
[2022-12-24] MEDS: THIAMINE HCL 100 MG TABLET (FP) PO SCH ×2 (22:37→22:53)
[2022-12-24] MEDS: cloNIDine HCL 0.1 MG TABLET PO PRN (22:37)
[2022-12-25 06:27] VITALS: BP 141/82; PULSE 58; RESP 17; TEMP 97.8
[2022-12-25] MEDS ORDERED: methaDONE HCL 10 MG TABLET (FOR DETOX USE ONLY) PO ONE (10:00)
[2022-12-25] MEDS: cloNIDine HCL 0.1 MG TABLET PO PRN (10:09)
[2022-12-25] MEDS: PRENATAL VITAMINS W/ FOLIC ACID TABLET (FP) PO SCH (10:09)
[2022-12-25] MEDS: NICOTINE 14 MG/24 HOURS TOPICAL PATCH TD SCH (10:10)
[2022-12-27] MEDS ORDERED: methaDONE HCL 10 MG TABLET (FOR DETOX USE ONLY) PO ONE (10:00)
== END 2022-12-25 11:35 | disposition left against medical advice (07) | DRG 770 ==
LOC: YASAS 22:13 → Y6N 12-23 09:21
PROVIDERS: ADMIT Allergy & Immunology; ATTEND Surgery
PROC: HZ2ZZZZ Detoxification Services for Substance Abuse Treatment (ICD-10-PCS; principal; 2022-12-23)
DX: F11.23 Opioid dependence with withdrawal (principal); F14.20 Cocaine dependence, uncomplicated; F17.210 Nicotine dependence, cigarettes, uncomplicated; F31.9 Bipolar disorder, unspecified; H53.001 Unspecified amblyopia, right eye; R00.1 Bradycardia, unspecified; Z59.00 Homelessness unspecified; Z80.0 Family history of malignant neoplasm of digestive organs
CPT/HCPCS: 36415; 80053; 85027; 86780; 87635; 87811; 93005; 93010

== ENCOUNTER 2023-01-22 13:55 | Inpatient (IN) | payer OTHER ==
[2023-01-22 15:02] VITALS: BMI 20.9
[2023-01-22] MEDS ORDERED: METHOCARBAMOL 500 MG TABLET PO PRN (16:20)
[2023-01-22] MEDS ORDERED: IBUPROFEN 600 MG TABLET (FP) PO PRN (16:20)
[2023-01-22] MEDS ORDERED: POLYETHYLENE GLYCOL (HEALTHYLAX) 3350 17 GM PACKET PO PRN (16:20)
[2023-01-22] MEDS ORDERED: BENZONATATE 200 MG CAPSULE PO PRN (16:20)
[2023-01-22] MEDS ORDERED: ACETAMINOPHEN 325 MG TABLET (FP) PO PRN (16:20)
[2023-01-22] MEDS ORDERED: NALOXONE HCL (KLOXXADO) 8 MG SPRAY NS PRN (16:20)
[2023-01-22] MEDS ORDERED: BISMUTH SUBSALICYLATE 524 MG/30 ML PO PRN (16:20)
[2023-01-22] MEDS ORDERED: MAG HYDROX/AL HYDROX/SIMETH 30 ML UNIT-DOSE CUP PO PRN (16:20)
[2023-01-22] MEDS ORDERED: BENZOCAINE/MENTHOL (CHLORASEPTIC ) LOZENGE MM PRN (16:20)
[2023-01-22] MEDS ORDERED: DICYCLOMINE HCL 10 MG CAPSULE PO PRN (16:20)
[2023-01-22] MEDS ORDERED: guaiFENesin 600 MG TABLET.ER (FP) PO PRN (16:20)
[2023-01-22] MEDS ORDERED: ONDANSETRON *ODT* 4 MG TABLET SL PRN (16:20)
[2023-01-22] MEDS ORDERED: MAGNESIUM HYDROX 2400MG/30ML ORAL SUSPENSION 30 ML CUP PO PRN (16:20)
[2023-01-22] MEDS ORDERED: NALOXONE HCL 0.4 MG/ML VIAL IM PRN (16:20)
[2023-01-22] MEDS ORDERED: LOPERAMIDE HCL 2 MG CAPSULE PO PRN (16:20)
[2023-01-22] MEDS ORDERED: IBUPROFEN 400 MG TABLET (FP) PO PRN (16:20)
[2023-01-22] MEDS ORDERED: hydrOXYzine PAMOATE 25 MG CAPSULE (FP) PO PRN (16:20)
[2023-01-22] MEDS: NICOTINE 7 MG/24 HOURS TOPICAL PATCH TD SCH (17:53)
[2023-01-22] MEDS: PRENATAL VITAMINS W/ FOLIC ACID TABLET (FP) PO SCH (17:55)
[2023-01-22] MEDS: MELATONIN 5 MG TABLETS PO SCH (22:35)
[2023-01-22] MEDS: THIAMINE HCL 100 MG TABLET (FP) PO SCH (22:35)
[2023-01-23] MEDS ORDERED: cloNIDine HCL 0.1 MG TABLET PO PRN (09:17)
[2023-01-23] MEDS ORDERED: methaDONE HCL 10 MG TABLET (FOR DETOX USE ONLY) PO ONE (09:17)
[2023-01-23] MEDS: PRENATAL VITAMINS W/ FOLIC ACID TABLET (FP) PO SCH (10:08)
[2023-01-23] MEDS: NICOTINE 7 MG/24 HOURS TOPICAL PATCH TD SCH (10:33)
[2023-01-23 12:16] LABS: HEMATOCRIT 38.6 % (35.4-49); HEMOGLOBIN 12.1 GM/dL (11.7-16.9); MCH 27.8 pg (25.7-33.7); MCHC 31.3 g/dl (32.0-35.9); MEAN CELL VOLUME 88.5 fl (80-96); MEAN PLT VOLUME 8.3 fl (7.5-11.1); PLATELET COUNT 186 10^3/uL (134-434); RBC 4.36 M/mm3 (4.00-5.60); RDW 15.9 % (11.9-15.9); WHITE BLOOD COUNT 6.4 K/mm3 (4.0-10.0)
[2023-01-23 12:47] LABS: POTASSIUM 4.2 mmol/L (3.5-5.1)
[2023-01-23 13:01] LABS: ALBUMIN 2.9 g/dl (3.4-5.0)
[2023-01-23 13:02] LABS: TOT PROT 5.6 g/dl (6.4-8.2)
[2023-01-23 13:03] LABS: BILIRUBIN,TOTAL 0.3 mg/dL (0.2-1); BLOOD UREA NITROGEN 19.6 mg/dL (7-18); CREATININE 0.9 mg/dL (0.55-1.3)
[2023-01-23 13:07] LABS: CALCIUM 8.5 mg/dL (8.5-10.1)
[2023-01-23 13:18] VITALS: RESP 16
[2023-01-23] MEDS: THIAMINE HCL 100 MG TABLET (FP) PO SCH (22:40)
[2023-01-23] MEDS: MELATONIN 5 MG TABLETS PO SCH (22:40)
[2023-01-24 09:36] VITALS: BP 150/99; PULSE 60; TEMP 98.8
[2023-01-24] MEDS: PRENATAL VITAMINS W/ FOLIC ACID TABLET (FP) PO SCH (10:46)
[2023-01-24] MEDS: NICOTINE 7 MG/24 HOURS TOPICAL PATCH TD SCH (10:46)
[2023-01-25] MEDS ORDERED: methaDONE HCL 10 MG TABLET (FOR DETOX USE ONLY) PO ONE (10:00)
[2023-01-27] MEDS ORDERED: methaDONE HCL 10 MG TABLET (FOR DETOX USE ONLY) PO ONE (10:00)
== END 2023-01-24 13:32 | disposition left against medical advice (07) | DRG 770 ==
LOC: YASAS 13:55 → Y3N 16:55
PROVIDERS: ADMIT Allergy & Immunology; ATTEND Surgery
PROC: HZ2ZZZZ Detoxification Services for Substance Abuse Treatment (ICD-10-PCS; principal; 2023-01-22)
DX: F11.23 Opioid dependence with withdrawal (principal); F14.20 Cocaine dependence, uncomplicated; F17.210 Nicotine dependence, cigarettes, uncomplicated; F31.9 Bipolar disorder, unspecified; G47.00 Insomnia, unspecified; Z86.19 Personal history of other infectious and parasitic diseases; Z88.0 Allergy status to penicillin; Z59.02 Unsheltered homelessness; Z86.69 Personal history of other diseases of the nervous system and sense organs
CPT/HCPCS: 36415; 80053; 85027; 86780; 87635